=== PATIENT | male | born 1990 | race Caucasian/White ===

== ENCOUNTER 2019-09-01 19:08 | Emergency (ER) | payer OTHER ==
[~2019-09-01] VITALS: Ht 180.3 cm; Wt 103.0 kg
[2019-09-01] MEDS ORDERED: OXYcodone/APAP 5/325MG TABLET PO ONE (19:30)
[2019-09-01] MEDS ORDERED: OXYcodone/APAP 5/325MG TABLET ONE (20:57)
[2019-09-01] MEDS ORDERED: HYDROmorphone 1 MG/ML, 1ML INJ IM ONE (21:30)
[2019-09-01] MEDS ORDERED: HYDROmorphone 1 MG/ML, 1ML VIAL ONE (21:31)
--- NOTE | 2019-09-01 23:17 | NUR ---
PATIENT IS CLEARED FOR DISCHARGE. ABLE TO STAY AWAKE WITHOUT COMPLICATIONS. PATIENT VERBALIZED UNDERSTANDING OF FOLLOW UP CARE AND SELF CARE AT HOME. TAKEN TO DISCHARGE DESK VIA WHEELCHAIR TO IMPROVE PATIENT SAFETY.
[2019-09-01 23:18] VITALS: BP 117/64
== END 2019-09-01 23:20 | disposition home or self-care (01) ==
LOC: ED 23:05
DX: S52.572A Other intraarticular fracture of lower end of left radius, initial encounter for closed fracture (principal); V87.8XXA Person injured in other specified noncollision transport accidents involving motor vehicle (traffic), initial encounter; Y93.89 Activity, other specified; Y92.410 Unspecified street and highway as the place of occurrence of the external cause; Y99.8 Other external cause status
CPT/HCPCS: 29125; 73110; 73130; 96372; 99283; J1170

== ENCOUNTER 2020-01-07 21:48 | Emergency (ER) | payer OTHER ==
[~2020-01-07] VITALS: Ht 182.9 cm; Wt 95.7 kg
--- NOTE | 2020-01-07 22:25 | NUR ---
Pt reports a productive cough for 4 days with occasional pain in his chest from coughing. Pt reports SOB with the cough as well. Pt denies fever with symptoms. Pt reports taking Tylenol and Dayquil for symptoms at home. Pt goes on to state he has had issues with his appetite for the past 3 months.
[2020-01-07 23:53] VITALS: BP 130/80
== END 2020-01-07 23:55 | disposition home or self-care (01) ==
LOC: ED 22:35
DX: J20.9 Acute bronchitis, unspecified (principal)
CPT/HCPCS: 71045; 93005; 99283